=== PATIENT | male | born 1965 | race Caucasian/White ===

== ENCOUNTER 2016-05-14 08:15 | Day surgery (SDC) | payer BC ==
--- NOTE | ~2016-05-14 | EGD ---
EGD REPORT [facility] [address] [place] [address] NAME: GENE JACKSON : [birth year] STATUS : REG [facility]#: [id number] AGE: 51 ADM/REG DATE : 05/14/16 MR#: [id number] REPORT SERV DATE: 05/14/16 DICTATED BY: CECIL GRANT DATE: 05/14/16 REPORT STATUS : Draft TRANSCRIBED BY: [facility] DATE: 05/14/16 [facility] Patient Name: Gene Jackson Date of : 1965 Attending MD: CECIL GRANT MD Procedure Date No Time: 05/14/2016 Procedure: Colonoscopy Indications: Colon cancer screening in patient at increased risk: Family history of colon polyps Referring MD: MYRIAM HERNANDEZ III Medicines: as per anesthesia Complications: No immediate complications. Procedure: Pre-Anesthesia Assessment: - ASA Grade Assessment: I - A normal, healthy patient. After I obtained informed consent, the scope was passed under direct vision. Throughout the procedure, the patient's blood pressure, pulse, and oxygen saturations were monitored continuously. The PCF [id number] was introduced through the anus and advanced to the cecum, identified by appendiceal orifice and ileocecal valve. The colonoscopy was performed without difficulty. The patient tolerated the procedure well. The quality of the bowel preparation was adequate to identify polyps. Findings: The perianal and digital rectal examinations were normal. Internal hemorrhoids were found during endoscopy and were mild. Impression: - Internal hemorrhoids. Recommendation: - Repeat colonoscopy in 5 years for surveillance. Procedure Code(s): --- Professional --- 43132, Colonoscopy, flexible, proximal to splenic flexure; diagnostic, with or without collection of specimen(s) by brushing or washing, with or without colon decompression (separate procedure) Diagnosis Code(s): --- Professional --- K64.8, Other hemorrhoids Z12.11, Encounter for screening for malignant neoplasm of colon Z83.71, Family history of colonic polyps EGD REPORT [facility] [address] [place] [place] [address] NAME: GENE JACKSON : [birth year] STATUS : REG [facility]#: [id number] AGE: 51 ADM/REG DATE : 05/14/16 MR#: [id number] REPORT SERV DATE: 05/14/16 DICTATED BY: CECIL GRANT. DATE: 05/14/16 REPORT STATUS : Draft TRANSCRIBED BY: [email or web address] DATE: 05/14/16 CPT copyright 2013 [employer]. All rights reserved. The codes documented in this report are preliminary and upon social media campaign manager review may be revised to meet current compliance requirements. CECIL GRANT MD 05/14/2016 9:48 AM This report has been signed electronically. Number of Addenda: 0 Note Initiated On: 05/14/2016 9:21 AM Scope Withdrawal Time 0 hours 9 minutes 10 seconds [address] [place] [address]
[~2016-05-14 08:15] MED LIST: ALLEGRA180 PO; NASACORTAQ NAS
== END 2016-05-14 23:59 | disposition home or self-care (01) ==
LOC: DMU 08:15
PROVIDERS: Internal Medicine Gastroenterology
PROC: 0DJD8ZZ Inspection of Lower Intestinal Tract, Via Natural or Artificial Opening Endoscopic (ICD-10-PCS; principal; 2016-05-14 09:00)
DX: Z12.11 Encounter for screening for malignant neoplasm of colon (principal); K64.8 Other hemorrhoids; K21.9 Gastro-esophageal reflux disease without esophagitis; Z83.71 Family history of colonic polyps; Z79.899 Other long term (current) drug therapy; Z98.890 Other specified postprocedural states